=== PATIENT | male | born 1970 ===

== ENCOUNTER 2018-04-05 20:11 | Emergency (ER) | payer BC ==
[2018-04-05 20:45] VITALS: BP 135/84; PULSE 58; RESP 16; TEMP 97.8; O2SAT 98
--- NOTE | 2018-04-05 20:56 | ED PDOC ---
Upper Extremity Pain/Injury Chief Complaint (Provider): left shoulder / clavicle pain History Per: Patient History/Exam Limitations: no limitations Onset/Duration Of Symptoms: Hrs (this morning) Current Symptoms Are (Timing): Still Present Additional Complaint(s): 47 year old male presents to the emergency department for left shoulder and clavicle pain after falling while playing field hockey this morning. Patient has no other complaints at this time, and denies any head injury or loss of consciousness. PMD: Waylon Velasquez <Vahe Melara - Last Filed: 04/05/18 21:07> <Kianna Grullon PA-C - Last Filed: 04/05/18 21:28> Time Seen by Provider: 04/05/18 20:55 Chief Complaint (Nursing): Upper Extremity Problem/Injury Past Medical History Reviewed: Historical Data, Nursing Documentation, Vital Signs Vital Signs: Last Vital Signs Temp 97.8 F 04/05/18 20:42 Pulse 58 L 04/05/18 20:42 Resp 16 04/05/18 20:42 BP 135/84 04/05/18 20:42 Pulse Ox 98 04/05/18 20:42 - Medical History PMH: Kidney Stones - Surgical History Other surgeries: kidney stone removal - Family History Family History: States: Unknown Family Hx - Social History Current smoker - smoking cessation education provided: No Alcohol: None Drugs: Denies <Vahe Melara - Last Filed: 04/05/18 21:07> Vital Signs: Last Vital Signs Temp 97.8 F 04/05/18 20:42 Pulse 58 L 04/05/18 20:42 Resp 16 04/05/18 20:42 BP 135/84 04/05/18 20:42 Pulse Ox 98 04/05/18 21:08 <Kianna Grullon PA-C - Last Filed: 04/05/18 21:28> - Home Medications Home Medications: Ambulatory Orders Medication Instructions Recorded Naproxen 500 mg PO BID PRN #20 tablet 04/05/18 - Allergies Allergies/Adverse Reactions: Allergies Allergy/AdvReac Type Severity Reaction Status Date / Time No Known Allergies Allergy Verified 04/05/18 20:42 Review of Systems ROS Statement: Except As Marked, All Systems Reviewed And Found Negative Musculoskeletal: Positive for: Arm Pain (left shoulder and clavicle) Neurological: Negative for: Other (loss of conscoiusness) <Vahe Melara Amador Filed: 04/05/18 21:07> Physical Exam - Reviewed Nursing Documentation Reviewed: Yes Vital Signs Reviewed: Yes - Physical Exam Appears: Positive for: Well, Non-toxic, No Acute Distress Head Exam: Positive for: ATRAUMATIC, NORMOCEPHALIC Skin: Positive for: Normal Color, Warm, Dry Eye Exam: Positive for: Normal appearance Cardiovascular/Chest: Positive for: Regular Rate, Rhythm. Negative for: Murmur Extremity: Positive for: Normal ROM (of left shoulder), Tenderness (to left clavicle) Neurologic/Psych: Positive for: Alert, Oriented (x3). Negative for: Motor/ Sensory Deficits <Vahe Melara Amador Filed: 04/05/18 21:07> - ECG O2 Sat by Pulse Oximetry: 98 (RA) Pulse Ox Interpretation: Normal <Vahe Melara Amador Filed: 04/05/18 21:07> Medical Decision Making Medical Decision Making: Time: 20:51 Initial Impression: left shoulder pain Initial Plan: --Motrin 400mg PO --Tylenol 650mg PO --Left shoulder XR Scribe Attestation: Documented by Dominique Vela, acting as a scribe for Vahe Melara PA-C. Provider Scribe Attestation: All medical record entries made by the Scribe were at my direction and personally dictated by me. I have reviewed the chart and agree that the record accurately reflects my personal performance of the history, physical exam, medical decision making, and the department course for this patient. I have also personally directed, reviewed, and agree with the discharge instructions and disposition. <Vahe Melara Filed: 04/05/18 21:07> Medical Decision Making: Case endorsed to me by JAVI Melara at 2100 pending XR L shoulder. XR L shoulder : no fracture, no dislocation, no AC separation, as read by JAVI. XR results d/w the patient. Diagnosis of contusion d/w the patient. Sling applied. Advised RICE to the L shoulder. Advised to follow up with primary care physician or referral provided in 1-2 days without fail. Advised to take medication as prescribed. Return to the emergency room at any time for any new or worsening symptoms. Patient states he fully agrees with and understands discharge instructions. States that he agrees with the plan and disposition. Verbalized and repeated discharge instructions and plan. I have given the patient opportunity to ask any additional questions. <Kianna Grullon PA-C - Last Filed: 04/05/18 21:28> Disposition <Vahe Melara - Last Filed: 04/05/18 21:07> - Patient ED Disposition Is Patient to be Admitted: No Counseled Patient/Family Regarding: Studies Performed, Diagnosis, Need For Followup, Rx Given - Disposition Disposition: Routine/Home Disposition Time: 21:15 <Kianna Grullon PA-C - Last Filed: 04/05/18 21:28> - Clinical Impression Clinical Impression: Contusion of shoulder, left - Disposition Referrals: [facility] [Outside] Harley Borjas MD [Staff Provider] - Condition: STABLE Additional Instructions: Thank you for letting us take care of you today. You were treated for L shoulder contusion. The emergency medical care you received today was directed at your acute symptoms. If you were prescribed any medication, please fill it and take as directed. It may take several days for your symptoms to resolve. Return to the Emergency Department if your symptoms worsen, do not improve, or if you have any other problems. Please contact your doctor in 2 days for re-evaluation and follow up / or call one of the physicians/clinics you have been referred to that are listed on the Patient Visit Information form that is included in your discharge packet. Bring any paperwork you were given at discharge with you along with any medications you are taking to your follow up visit. Our treatment cannot replace ongoing medical care by a primary care provider (PCP) outside of the emergency department. Thank you for allowing the [facility] team to be part of your care today. If you had an X-Ray : A Radiologist will review the ED reading if any change in treatment is needed we will contact you. Prescriptions: Naproxen 500 mg PO BID PRN #20 tablet PRN Reason: Pain, Moderate (4-7) Instructions: Contusion (DC) Forms: [facility] ED School/Work Excuse - PA / DENTAL [employer]ER / Resident Statement MD/DO has reviewed & agrees with the documentation as recorded. <Mitchel HARRELL,Kianna Celeste - Last Filed: 04/05/18 21:28>
--- NOTE | 2018-04-06 08:48 | RAD ---
PROCEDURE: Radiographs of the Left Shoulder HISTORY: r/o fx or sep COMPARISON: No prior. FINDINGS: BONES: No acute fracture or destructive bony lesion identified. JOINTS: Limited degenerative changes seen the acromioclavicular joint with superior osteophytes developing. Glenohumeral joint preserved. SOFT TISSUES: Normal. OTHER FINDINGS: None. IMPRESSION: Limited degenerative change at the left acromioclavicular joint. No acute fracture, subluxation or dislocation.
== END 2018-04-05 21:44 | disposition home or self-care (01) ==
LOC: H.ER 20:11
DX: S40.012A Contusion of left shoulder, initial encounter (principal); X50.9XXA Other and unspecified overexertion or strenuous movements or postures, initial encounter; Y92.89 Other specified places as the place of occurrence of the external cause